=== PATIENT | male | born 1950 | race Caucasian/White ===

== ENCOUNTER 2021-09-03 17:41 | Inpatient (IN) | payer MEDICARE, OTHER ==
[~2021-09-03] VITALS: Ht 182.9 cm; Wt 64.7 kg
--- NOTE | 2021-09-03 17:51 | NUR ---
SI ASSESSMENT PT STATES HE DID TRY TO COMMIT SUICIDE BACK IN 1982. HAS SCHIZOPHRENIA BIPOLAR DIAGNOSIS. HE STATES HE NO LONGER HAS THOUGHTS OF SUICIDE.
--- NOTE | 2021-09-03 19:26 | NUR ---
LATE ENTRY 1725: PT RECEIVED VIA AIR TRANSPORT FROM [place] A DIRECT ADMIT. PLACED IN BED IN ROOM. WEIGHED IN BED, VSS AND ORIENTED TO ROOM AND UNIT ROUTINE. DR. SUMNER NOTIFED OF PT'S ARRIVAL. ORDERS RECIEVED. ADMIT COMPLETED. INTACT & PATENT 20G PIV IN L AC. PT A&O X 4, DENIES PAIN OR ANY DISCOMFORT. PLEASANT & COOPERATIVE WITH ALL CARE.
--- NOTE | 2021-09-03 19:33 | NUR ---
REQUESTING BREATING TREATMENT. ON PER NC. RT NOTIFIED AND WILL FOLLOW UP. CALL LIGHT IN REACH
[2021-09-03] MEDS ORDERED: LISI20 PO (20:23)
[2021-09-03] MEDS ORDERED: AMLODIPINE BESY10 MG PO (20:24)
[2021-09-03] MEDS ORDERED: Ventolin/Prove6.7 GM INH (20:24)
[2021-09-03] MEDS ORDERED: COMBIVENT RESPIM4 G1 INH (20:25)
--- NOTE | 2021-09-03 20:35 | NUR ---
DRUM SANDER OFFBEARER REPORTED HR IN THE 200'S. UPON ARRIVAL AT BEDSIDE. ASYMPTOMATIC. DENIED CHEST PAIN OR OTHER PAIN. LAUGHING HE WAS TALKING ON THE PHONE. TELE CHECKED. AFTER ED TAGS REMOVED, HR 141. REMAINS ASYMPTOMATIC. IVF OF NS INFUSING AT 100 ML/HR. CALL LIGHT IN REACH
[2021-09-04 01:21] LABS: BASOPHILS ABSOLUTE AUTO 0.02 K/mm3 (0.00-0.23); BASOPHILS PERCENT AUTO 0 % (0-2); EOSINOPHILS ABSOLUTE AUTO 0.01 K/mm3 (0.00-0.68); EOSINOPHILS PERCENT AUTO 0 % (0-6); Hematocrit 36.7 % (37.0-53.0); Hemoglobin 12.1 g/dL (13.5-17.5); IMMATURE GRAN ABSOLUTE AUTO 0.04 K/mm3 (0.00-0.10); IMMATURE GRAN PERCENT AUTO 0 % (0-1); LYMPHOCYTES ABSOLUTE AUTO 1.58 K/mm3 (0.84-5.20); LYMPHOCYTES PERCENT AUTO 13 % (21-46); MONOCYTES PERCENT AUTO 9 % (4-13); Mean Corpuscular HGB 28.7 pg (26.0-34.0); Mean Corpuscular Volume 87 fL (80-100); Mean Platelet Volume 8.7 fL (9.1-12.4); NEUTROPHILS ABSOLUTE AUTO 9.22 K/mm3 (1.96-9.15); NEUTROPHILS PERCENT AUTO 77 % (41-73); Platelet Count 252 K/mm3 (150-400); RDW Standard Deviation 48.1 fL (35.1-46.3); Red Blood Cell Count 4.22 M/mm3 (4.30-5.90); White Blood Cell Count 11.97 K/mm3 (4.00-11.30)
[2021-09-04 01:40] LABS: Bilirubin, Total 0.4 mg/dL (0.1-1.0); Bun/Creatinine Ratio 17.1 (12.0-20.0); Calcium, Blood 8.9 mg/dL (8.5-10.1); Creatinine, Blood 1.64 mg/dL (0.60-1.20); Globulin, Blood 2.9 g/dL (2.2-4.0); Total Protein, Blood 5.9 g/dL (6.4-8.2)
--- NOTE | 2021-09-04 03:44 | NUR ---
SAP PI ARCHITECT SUMMARY PT WAS ADMITTED TOWARDS THE END OF PREVIOUS SHIFT - DIRECT ADMIT. PLACED ON TELE, TELE REPORTED HR IN THE 200'S. ON VISUAL ASSESSMENT, ASYMPTOMATIC. TELE BOX CHECKED AND HR DECREASED TO 141. O2 PER NC. VOICED SOME SOB, RT NOTIFIED AND HAD TREATMENT X 2 OF THIS WRITING. AWAKE AT INTERVALS WITH VERY LITTLE AMTS OF SLEEP. TALKING LOUDLY ON PHONE. IVF OF NS INITIATED AT HS, 100 ML/HR. ORIENTED TO USE OF CALL LIGHT. PLACED ON ISOLATION PRECAUTIONS UNTIL GI PANEL OBTAINED AND NEED RULED OUT. UNSTEADY ON FEET. INSTRUCTED TO USE CALL LIGHT. CALL LIGHT IN REACH
[2021-09-04 11:30] LABS: Adenovirus F 40/41 Not Detected (NOT DETECT); Astrovirus Not Detected (NOT DETECT); Campylobacter Sp Not Detected (NOT DETECT); Cryptosporidium Not Detected (NOT DETECT); Cyclospora Cayetanensis Not Detected (NOT DETECT); E. Coli O157 Not Detected (NOT DETECT); Entamoeba Histolytica Not Detected (NOT DETECT); Enteroaggregative E. coli-EAEC Not Detected (NOT DETECT); Enteropathogenic E. coli-EPEC Not Detected (NOT DETECT); Enterotoxigenic E. coli-ETEC Not Detected (NOT DETECT); Giardia Lamblia Not Detected (NOT DETECT); Norovirus GI/GII Not Detected (NOT DETECT); Plesiomonas Shigelloides Not Detected (NOT DETECT); Rotavirus A Not Detected (NOT DETECT); Salmonella Sp Not Detected (NOT DETECT); Sapovirus Not Detected (NOT DETECT); Shiga Toxin-prod E. coli-STEC Not Detected (NOT DETECT); Shigella/Enteroin E. coli-EIEC Not Detected (NOT DETECT); Vibrio Cholerae Not Detected (NOT DETECT); Vibrio Sp Not Detected (NOT DETECT); Yersinia Enterocolitica Not Detected (NOT DETECT)
--- NOTE | 2021-09-04 17:08 | NUR ---
DAY SHIFT SUMMARY 71 YR OLD MALE PT WITH MAXINE/NSTEMI/DEHYDRATION. PT TAKEN OFF TELE THIS SHIFT PER MD. A/O X4, STANDBY ASSIST TO BSC. 2L O2 NC IN USE AND IS PT BASELINE AT HOME. CALL LIGHT WITHIN REACH AND ABLE TO CALL APPROPRIATELY.
--- NOTE | 2021-09-05 03:44 | NUR ---
MARKETING MGR SUMMARY AWAKE AT INTERVALS, CHEERFUL AFFECT, JOKED WITH STAFF AT INTERVALS WHEN AWAKE. IVF INFUSING AT 100 ML/HR. TOLERATING DIET WELL. NO NOTED SEIZURE ACTIVITY (HX EPILEPSY). O2 PER NC. DENIED PAIN OTHER THAN USUAL DISCOMFORT OF BLE FOR WHICH HE TAKES GABAPENTIN FOR. LUNG SOUNDS DIMINISHED, RECEIVING TREATMENTS PER RT - SEE MAR FOR DETAILS. CALL LIGHT IN REACH
[2021-09-05 05:04] LABS: BASOPHILS ABSOLUTE AUTO 0.03 K/mm3 (0.00-0.23); BASOPHILS PERCENT AUTO 0 % (0-2); EOSINOPHILS ABSOLUTE AUTO 0.17 K/mm3 (0.00-0.68); EOSINOPHILS PERCENT AUTO 2 % (0-6); Hematocrit 33.9 % (37.0-53.0); IMMATURE GRAN ABSOLUTE AUTO 0.04 K/mm3 (0.00-0.10); IMMATURE GRAN PERCENT AUTO 0 % (0-1); LYMPHOCYTES ABSOLUTE AUTO 1.41 K/mm3 (0.84-5.20); LYMPHOCYTES PERCENT AUTO 16 % (21-46); MONOCYTES ABSOLUTE AUTO 0.79 K/mm3 (0.16-1.47); MONOCYTES PERCENT AUTO 9 % (4-13); Mean Corpuscular HGB 28.5 pg (26.0-34.0); Mean Corpuscular HGB Conc 32.4 g/dL (31.5-36.5); Mean Corpuscular Volume 88 fL (80-100); Mean Platelet Volume 8.9 fL (9.1-12.4); NEUTROPHILS ABSOLUTE AUTO 6.65 K/mm3 (1.96-9.15); NEUTROPHILS PERCENT AUTO 73 % (41-73); Platelet Count 238 K/mm3 (150-400); RDW Coefficient Variation 14.8 % (11.7-14.2); RDW Standard Deviation 47.7 fL (35.1-46.3); Red Blood Cell Count 3.86 M/mm3 (4.30-5.90); White Blood Cell Count 9.09 K/mm3 (4.00-11.30)
[2021-09-05 05:40] LABS: Calcium, Blood 8.6 mg/dL (8.5-10.1); Creatinine, Blood 1.07 mg/dL (0.60-1.20); Potassium, Blood 3.2 mmol/L (3.5-5.5)
--- NOTE | 2021-09-05 16:41 | NUR ---
DAY SHIFT SUMMARY 71 YR OLD MALE WITH MAXINE/NSTEMI/DEHYDRATION. 2L O2 NC IN USE, THIS IS ALSO PT'S BASELINE. SPOKE WITH PT'S DAUGHTER GERALDINE TODAY WHO IS CONCERNED WITH HIM GOING HOME WITHOUT RESOURCES. SHE WOULD LIKE TO SPEAK WITH CARE MANAGEMENT ABOUT HOME RESOURCES AND LIVING ARRANGEMENTS, ALONG WITH POSSIBLE PORTABLE O2. NO CARE MANAGEMENT ON TODAY DUE TO THE WEEKEND, BUT WILL PASS ON TO NEXT SHIFT TO LET THEM KNOW. CALL LIGHT WITHIN REACH AND ABLE TO CALL APPROPRIATE.
--- NOTE | 2021-09-06 03:18 | NUR ---
ASBESTOS SHINGLE ROOFER SUMMARY AWAKE MOST OF SHIFT, WATCHING TV AND LAUGHING. O2 PER NC AT 2-3L/MIN. NO C/O VOICED RE PAIN. INTERMITTENT REQUESTS FOR NEBULIZER TREATMENTS. DENIED PAIN WHEN ASKED. CALL LIGHT IN REACH. VSS
[2021-09-06 05:48] LABS: BASOPHILS ABSOLUTE AUTO 0.04 K/mm3 (0.00-0.23); BASOPHILS PERCENT AUTO 1 % (0-2); EOSINOPHILS ABSOLUTE AUTO 0.39 K/mm3 (0.00-0.68); EOSINOPHILS PERCENT AUTO 6 % (0-6); Hematocrit 33.2 % (37.0-53.0); Hemoglobin 10.7 g/dL (13.5-17.5); IMMATURE GRAN ABSOLUTE AUTO 0.02 K/mm3 (0.00-0.10); IMMATURE GRAN PERCENT AUTO 0 % (0-1); LYMPHOCYTES PERCENT AUTO 33 % (21-46); MONOCYTES PERCENT AUTO 13 % (4-13); Mean Corpuscular HGB 28.5 pg (26.0-34.0); Mean Corpuscular HGB Conc 32.2 g/dL (31.5-36.5); Mean Corpuscular Volume 88 fL (80-100); Mean Platelet Volume 9.1 fL (9.1-12.4); NEUTROPHILS ABSOLUTE AUTO 3.34 K/mm3 (1.96-9.15); NEUTROPHILS PERCENT AUTO 48 % (41-73); Platelet Count 237 K/mm3 (150-400); RDW Coefficient Variation 14.9 % (11.7-14.2); RDW Standard Deviation 48.3 fL (35.1-46.3); Red Blood Cell Count 3.76 M/mm3 (4.30-5.90); White Blood Cell Count 6.99 K/mm3 (4.00-11.30)
[2021-09-06 06:18] LABS: Bun/Creatinine Ratio 7.4 (12.0-20.0); Calcium, Blood 8.9 mg/dL (8.5-10.1); Creatinine, Blood 0.94 mg/dL (0.60-1.20); Potassium, Blood 3.2 mmol/L (3.5-5.5)
[2021-09-06] MEDS ORDERED: GABA100 PO (10:52)
--- NOTE | 2021-09-06 14:41 | NUR ---
DISCHARGE NOTE- PT WAS GIVEN VERBAL AND WRITTEN DISCHARGE INSTRUCTIONS AND ACKNOWLEDGED UNDERSTANING OF THEM. PT IV WAS DC'D PRIOR TO DISCHARGE, MEDS FAXED TO [facility] [place]. PT WAS ESCORTED OUT VIA WC BY THE HOSPITAL PHARMACY TECHNICIAN WITH O2 WHERE HE WAS PICKED UP BY A [facility] TO RETURN HOME. NO S&S OF DISTRESS AT THE TIME OF DISCHARGE.
== END 2021-09-06 13:49 | disposition home health service (06) | DRG 683 ==
LOC: MEDS 17:41
PROVIDERS: Internal Medicine; ADMIT Internal Medicine
DX: N17.9 Acute kidney failure, unspecified (principal); F20.0 Paranoid schizophrenia; J96.11 Chronic respiratory failure with hypoxia; K62.5 Hemorrhage of anus and rectum; E44.0 Moderate protein-calorie malnutrition; Z66 Do not resuscitate; A08.4 Viral intestinal infection, unspecified; J43.9 Emphysema, unspecified; E86.0 Dehydration; N40.0 Benign prostatic hyperplasia without lower urinary tract symptoms; R77.8 Other specified abnormalities of plasma proteins; I95.9 Hypotension, unspecified; R29.6 Repeated falls; D64.9 Anemia, unspecified; E87.6 Hypokalemia; Z99.81 Dependence on supplemental oxygen; Z88.0 Allergy status to penicillin; Z87.891 Personal history of nicotine dependence
CPT/HCPCS: 36415; 80048; 80053; 84145; 84484; 85025; 87507; 94640; 94664; 94760; 97110; 97162; 97165; 97530; A9270; J7030